=== PATIENT | female | born 1985 | race Caucasian/White ===

== ENCOUNTER 2018-02-25 13:38 | Emergency (ER) | payer OTHER, MEDICAID ==
[~2018-02-25] VITALS: Ht 162.6 cm; Wt 53.1 kg
[2018-02-25 14:59] LABS: Urine Bacteria FEW /hpf (None Seen); Urine Blood Negative /uL (Negative); Urine Mucus FEW (None Seen); Urine Specific Gravity 1.023 (1.001-1.035); Urine WBC 3 /hpf (0 - 5)
[2018-02-25 18:56] VITALS: BP 140/88
== END 2018-02-25 19:59 | disposition home or self-care (01) ==
LOC: ER 13:38
DX: M25.532 Pain in left wrist (principal); G89.29 Other chronic pain
CPT/HCPCS: 73100; 81001

== ENCOUNTER 2020-06-17 00:12 | Emergency (ER) | payer OTHER, MEDICAID ==
[~2020-06-17] VITALS: Ht 162.6 cm; Wt 49.9 kg
[2020-06-17 05:05] VITALS: BP 123/95
== END 2020-06-17 05:20 | disposition home or self-care (01) ==
LOC: ER 00:14
DX: F10.229 Alcohol dependence with intoxication, unspecified (principal); Z88.8 Allergy status to other drugs, medicaments and biological substances; Y90.9 Presence of alcohol in blood, level not specified